=== PATIENT | female | born 2000 | race Caucasian/White ===

== ENCOUNTER 2021-06-23 00:04 | Emergency (ER) | payer MEDICAID ==
[~2021-06-23] VITALS: Ht 165.1 cm; Wt 61.2 kg
[2021-06-23 00:10] VITALS: BP 112/77
--- NOTE | 2021-06-23 00:10 | NUR ---
"2 DAYS AGO WAS BURNING CANDLE AND FELL ASLEEP. WHEN WAKING UP I WENT FOR A RUN AND HAD BLACK NASAL DISCHARGE. NOW, MY CHEST HURTS"
--- NOTE | 2021-06-23 00:20 | NUR ---
TO LOBBY FOLLOWING TRIAGE
--- NOTE | 2021-06-23 00:47 | NUR ---
DR PHAM EXAMINING PT IN LOB
--- NOTE | 2021-06-23 01:05 | NUR ---
SWABS OBTAINED AND SENT TO LAB
[2021-06-23 01:26] VITALS: BP 112/77
--- NOTE | 2021-06-23 01:26 | NUR ---
Patient discharged with v/s stable. Written and verbal after care instructions given and explained. Patient verbalized understanding. Ambulatory with steady gait. All questions addressed prior to discharge. Advised to follow up with PMD.
== END 2021-06-23 01:26 | disposition home or self-care (01) ==
LOC: MED 00:04
DX: R07.9 Chest pain, unspecified (principal); R09.89 Other specified symptoms and signs involving the circulatory and respiratory systems; Z20.822 Contact with and (suspected) exposure to COVID-19
CPT/HCPCS: 71045; 87426; 87804; 99284; U0003

== ENCOUNTER 2022-04-09 16:08 | Emergency (ER) | payer MEDICAID, OTHER ==
[~2022-04-09] VITALS: Ht 162.6 cm; Wt 61.2 kg
[2022-04-09 17:05] VITALS: BP 117/76
--- NOTE | 2022-04-09 22:15 | NUR ---
PT CALLED BY , NO ANSWER. LWBS
--- NOTE | 2022-04-09 22:32 | NUR ---
Luis Carlos sexton in ED - 04/09/22 at 2232 by [facility] PT CALLED BY , NO ANSWER. LWBS
== END 2022-04-09 22:15 | disposition left against medical advice (07) ==
LOC: MED 16:08
DX: R42 Dizziness and giddiness (principal); R11.0 Nausea; Z53.21 Procedure and treatment not carried out due to patient leaving prior to being seen by health care provider